=== PATIENT | female | born 1985 | race Caucasian/White ===

== ENCOUNTER 2020-07-17 00:58 | Outpatient (CLI) | payer BC, SELFPAY ==
[2020-07-17 18:46] LABS: SARS-CoV-2 RNA PCR Negative
== END 2020-07-17 00:59 | disposition home or self-care (01) ==
LOC: ANHCOVIDDT 00:59
PROVIDERS: Visit Provider Obstetrics & Gynecology
DX: Z01.812 Encounter for preprocedural laboratory examination (principal); Z20.822 Contact with and (suspected) exposure to COVID-19
CPT/HCPCS: C9803; U0003; U0005

== ENCOUNTER 2020-07-20 01:16 | Day surgery (SDC) | payer BC, SELFPAY ==
[2020-07-08 16:41] VITALS: BMI 21.9
--- NOTE | 2020-07-19 11:56 | P.PNAN_ITS ---
Anes - Initial Pre Proc Eval Procedure: Operation Date: 07/20/20 12:00 Proposed Procedures p Hysteroscopy, Dilation and Curettage, Polypectomy - Victoriano Busby MD Date/Time: 07/19/20 11:56 Surgeon: Victoriano Busby MD Pre Op Diagnosis: Post Coital bleeding, uterine polyp Patient Data Age: 35 Gender: F Height: 1.57 m Weight: 54.43 kg Allergies Allergy/AdvReac Type Severity Reaction Status Date / Time No Known Allergies Allergy Unknown Verified 07/20/20 10:21 Home Medications Medication Instructions Recorded Confirmed Type A To Z Multivitamin 1 cap PO DAILY 07/08/20 07/08/20 History acetaminophen 500 mg PO Q6H PRN 07/20/20 07/20/20 History ibuprofen 600 mg PO Q6H PRN 07/20/20 07/20/20 History pantoprazole [Protonix] 40 mg PO QAM PRN 07/20/20 07/20/20 History Patient hx anesthesia problems: none Family hx anesthesia problems: none [facility] Social History Social History Smoking status: Never smoker Living arrangements: with family Spiritual care concerns: No Anes - Eval Final PreProcedure Day of Procedure 07/19/20 11:56 Patient weight: normal Heart: regular rate and rhythm Lungs: clear to auscultation and normal air movement Airway: Mallampati scale class II Neurological: alert and oriented Last oral intake: >/= 8 hours ASA classification: I Emergent: no Anesthetic plan: proceed Anesthesia type and monitoring: general GIVS and LMA Informed Consent: The patient's anesthetic plan and its attendant risks and benefits were discussed with the patient/family/POA. Questions were solicited and answers provided to the satisfaction of the patient/family/POA.
--- NOTE | 2020-07-19 23:14 | P.HP_ITS ---
H&P: HPI History of Present Illness Date/Time: 07/19/20 23:14 Chief Complaint: Irregular bleeding Narrative: 35 y/o with intermittent vaginal bleeding. Office hysteroscopy suggested an endometrial polyp. I have offered surgical management. Review of Systems Review of Systems: All systems reviewed & are unremarkable except as noted in HPI and below PMFSH Social History Social History Smoking status: Never smoker Spiritual care concerns: No Comments x 3, largest infant 8#2oz. Meds Home Medications and Allergies Home Medications Medication Instructions Recorded Confirmed Type A To Z Multivitamin 1 cap PO DAILY 07/08/20 07/08/20 History Allergies Allergy/AdvReac Type Severity Reaction Status Date / Time No Known Allergies Allergy Unknown Verified 07/08/20 16:42 Exam Const: Orientation/consciousness: patient oriented x3 Other: Well- developed, well-nourished female in no acute distress. Neck: Thyroid: thyroid normal Lymphatic: no lymphadenopathy noted (in neck, axilla or inguinal nodes) Resp: Effort & Inspection: normal respiratory effort Auscultation: clear to auscultation bilaterally Cardio: Rate: regular rate Rhythm: regular rhythm Heart sounds: S1 normal heart sound present and S2 normal heart sound present GI: Other: ABD: Soft, nontender, nondistended. No guarding or rebound tenderness. No hepatosplenomegaly. : General: Yes no CVA tenderness Other: External genitalia: normal female hair distribution, without lesion. Urethral meatus: no lesion, non prolapsed. Bladder: no mass, nontender Vagina: well-estrogenized, without lesion or discharge. No cystocele or rectocele. Cervix: no lesion or discharge. Uterus: small, anteverted, freely mobile, nontender Adnexa: no mass or tenderness. Anus/perineum: no lesions, nontender Back/Spine/Pelvis: Back: no CVA tenderness Skin: General skin exam: normal color and no rashes or lesions noted Neuro: General: patient oriented x3 Extrem: Other: Extremities: nontender with no edema Psych: Mental Status: mental status grossly normal Affect: normal affect Assessment and Plan Assessment and plan (1) Abnormal vaginal bleeding: Code(s): N93.9 - Abnormal uterine and vaginal bleeding, unspecified Status: Acute Assessment and Plan: Because of the longstanding nature of her bleeding, and because there was a suggestion on an endometrial polyp on office hysteroscopy, I have offered dilation and sharp curettage, with possible endometrial polypectomy. She understands risks of surgery to include risks of anesthesia, risks of pain, infection, bleeding, blood products, thromboembolic phenomena and damage to adjacent structures such as bowel, bladder, ureters, blood vessels and nerves. She understands all these risks and elects to proceed with surgery.
[2020-07-20 09:50] VITALS: BP 123/85; PULSE 77; RESP 16; TEMP 37.2; O2SAT 100
[2020-07-20] MEDS: ACETAMINOPHEN 500 MG TABLET 1000 MG PO (10:11)
[2020-07-20] MEDS: LACTATED RINGERS 1,000 ML 30 ML IV CONT ×2 (10:15→12:33)
--- NOTE | 2020-07-20 11:55 | WPDHPUPDATE1 ---
History and Physical Update Update Date/Time: 07/20/20 11:55 History and Physical has been reviewed, including an updated exam of the patient. There are NO changes in the patient's condition. Risks, benefits, and alternatives have been discussed and questions answered. Patient agrees to proceed with procedure.
[2020-07-20] MEDS: LIDOCAINE HCL 1% LOCAL INJ 20 ML VIAL 10 ML INFILTRATE (12:17)
[2020-07-20] MEDS: KETOROLAC 30 MG/ML VIAL (*BKC) IV PUSH (12:25)
--- NOTE | 2020-07-20 12:31 | PM.PROC ---
Procedure Note - Detailed Date of procedure: 07/20/20 Pre-op diagnosis: Post Coital bleeding, uterine polyp Metrorrhagia Endometrial polyp Post-op diagnosis: same Procedure performed: Hysteroscopy Dilation and sharp curettage Endometrial polypectomy Description of procedure: The patient was taken to the operating room where she was prepared and draped in the usual sterile fashion in the dorsal lithotomy position. The bladder was drained with a red rubber catheter. A sterile speculum was placed into the vagina. The anterior lip of the cervix was grasped with single-tooth tenaculum. Ten mL of 1% lidocaine was administered in a paracervical block. The cervix was then gently dilated using Hegar dilators until an 8 mm dilator could be passed. Hysteroscopy was performed using sterile saline as a distention medium. Findings were as noted above. A polyp forceps was used to grasp the apparent endometrial polyp and remove it. Sharp curettage was then performed, and endometrial curettings were collected on a Telfa pad and passed off to be sent to pathology. A second look was taken with the hysteroscope to ensure that the polyp had been completely excised. Hemostasis was excellent. Sponge, lap, needle and instrument counts were correct. The patient was awakened and taken to the recovery room in stable condition. I was present and scrubbed through the entire procedure. Implants: None Anesthesia: MAC and local (1% lidocaine paracervical block) Surgeon: Victoriano Busby MD Estimated blood loss (mL): 10 Drains: No Packing: No Pathology: yes (endometrial curettings, endometrial polyp) Complications: None Condition: stable Disposition: PACU Findings: Small endometrial polyp at the right fundus. Both tubal ostia seen.
[2020-07-20 12:35] VITALS: BP 99/53; PULSE 80; RESP 16; O2SAT 100
[2020-07-20 13:00] VITALS: BP 89/61; PULSE 60; RESP 20
[2020-07-20 13:30] VITALS: BP 87/63; PULSE 55; RESP 20
== END 2020-07-20 13:45 | disposition home or self-care (01) ==
PROVIDERS: Visit Provider Obstetrics & Gynecology
PROC: 0U5B8ZZ Destruction of Endometrium, Via Natural or Artificial Opening Endoscopic (ICD-10-PCS; CPT 58563; principal; 2020-07-20 12:00)
DX: N93.0 Postcoital and contact bleeding (principal); N84.0 Polyp of corpus uteri; N93.9 Abnormal uterine and vaginal bleeding, unspecified
CPT/HCPCS: 58558; 88305; A9270; J1885; J2250; J2370; J2405; J3010; J7030; J7120

== ENCOUNTER 2021-02-14 02:07 | Day surgery (SDC) | payer BC, SELFPAY ==
[2021-02-09 13:37] VITALS: BMI 21.9
[2021-02-14 11:33] VITALS: BP 107/62; PULSE 77; RESP 18; TEMP 36.7; O2SAT 100; BMI 21.2
--- NOTE | 2021-02-14 11:37 | WPDANESEPPF ---
Anes - Initial Pre Proc Eval Procedure: Operation Date: 02/14/21 12:15 Proposed Procedures p Esophagogastroduodenoscopy - Alfonso Amaya MD Date/Time: 02/14/21 11:37 Surgeon: Alfonso Amaya MD Pre Op Diagnosis: food impaction Patient Data Age: 35 Gender: F Height: 1.57 m Weight: 52.8 kg Last Vital Signs Temp 36.7 C 02/14/21 11:33 Pulse 77 02/14/21 11:33 Resp 18 02/14/21 11:33 BP 107/62 02/14/21 11:33 Pulse Ox 100 02/14/21 11:33 Allergies Allergy/AdvReac Type Severity Reaction Status Date / Time No Known Allergies Allergy Unknown Verified 02/14/21 11:28 Home Medications Medication Instructions Recorded Confirmed Type A To Z Multivitamin 1 cap PO DAILY 07/08/20 02/09/21 History acetaminophen 500 mg PO Q6H PRN 07/20/20 02/09/21 History ibuprofen 600 mg PO Q6H PRN 07/20/20 02/09/21 History pantoprazole [Protonix] 40 mg PO QAM PRN 07/20/20 02/09/21 History Patient hx anesthesia problems: none Family hx anesthesia problems: none PMFSH Social History Social History Smoking status: Never smoker Alcohol intake: current Drinks per week: 5 Living arrangements: with family Spiritual care concerns: No Anes - Eval Final PreProcedure Day of Procedure 02/14/21 11:37 Patient weight: normal Lungs: clear to auscultation Airway: Mallampati scale class II Neurological: alert and oriented Last oral intake: >/= 8 hours ASA classification: I Emergent: no Anesthetic plan: proceed Anesthesia type and monitoring: general GIVS and standard monitoring Informed Consent: The patient's anesthetic plan and its attendant risks and benefits were discussed with the patient/family/POA. Questions were solicited and answers provided to the satisfaction of the patient/family/POA.
[2021-02-14] MEDS: LACTATED RINGERS 1,000 ML 150 ML IV CONT (11:41)
--- NOTE | 2021-02-14 12:07 | PM.HPGS ---
History of Present Illness History of Present Illness Consent: Risks, benefits, and alternatives have been discussed and questions answered. Patient agrees to proceed with procedure. Chief complaint: food impaction Narrative: Iris Walker is a 35 year old female with dysphagia to solids and also one time had food bolus but treated medically, never had egd. Using protonix but only occasionally Review of Systems Constitutional: Constitutional: Denies headache(s) and Denies weakness Eyes: Eyes: Denies blurry vision ENT: Reports Normal hearing present, Denies headache(s) and Denies neck pain Cardiovascular: Cardiovascular: Denies chest pain and Denies dyspnea Respiratory: Respiratory: Denies dyspnea Gastrointestinal: Gastrointestinal: Reports no additional gastrointestinal complaints Genitourinary: Genitourinary: Denies dysuria Musculoskeletal: Musculoskeletal: Denies neck pain Integumentary/Breasts: Skin/Breast: Denies dry skin Neurologic: Reports Normal hearing present, Denies headache(s) and Denies weakness Psychiatric: Psychiatric: Denies anxiety Endocrine: Endocrine: Denies change in body appearance Hematologic/Lymphatic: Hematologic/Lymphatic: Denies easy bleeding Allergic/Immunologic: Allergic/Immunologic: Denies urticaria PMFSH Past Medical History Medical History (Updated 02/14/21 @ 12:08 by Alfonso Amaya MD) Dysphagia Social History Social History Smoking status: Never smoker Alcohol intake: current Drinks per week: 5 Living arrangements: with family Spiritual care concerns: No Meds Home Medications and Allergies Home Medications Medication Instructions Recorded Confirmed Type A To Z Multivitamin 1 cap PO DAILY 07/08/20 02/09/21 History acetaminophen 500 mg PO Q6H PRN 07/20/20 02/09/21 History ibuprofen 600 mg PO Q6H PRN 07/20/20 02/09/21 History pantoprazole [Protonix] 40 mg PO QAM PRN 07/20/20 02/09/21 History Allergies Allergy/AdvReac Type Severity Reaction Status Date / Time No Known Allergies Allergy Unknown Verified 02/14/21 11:28 Vital Signs Vital Signs - 24 hr 02/14/21 11:33 Temperature 98.1 F Pulse Rate 77 Respiratory Rate 18 Blood Pressure 107/62 Pulse Oximetry 100 Exam Const: General: comfortable and no acute distress HENMT: General nose exam: Normal nares present Eyes: General: appearance normal, both eyes and all related structures Neck: Neck: no JVD Resp: Auscultation: clear to auscultation bilaterally Cardio: Rate: regular rate Rhythm: regular rhythm GI: Inspection: non-distended GI Palp: Yes Soft to palpation Skin: General skin exam: normal color Neuro: General: gait normal Speech: normal speech Extrem: General: normal to inspection Psych: Mental Status: mental status grossly normal Assessment and Plan Assessment and plan (1) Dysphagia: Code(s): R13.10 - Dysphagia, unspecified Status: Acute Assessment and Plan: egd to assess if stricture, also consider random bx ? EoE
[2021-02-14 12:27] VITALS: BP 83/60; PULSE 78; RESP 18; O2SAT 100
[2021-02-14 12:37] VITALS: BP 83/56; PULSE 71; RESP 18; O2SAT 100
== END 2021-02-14 12:55 | disposition home or self-care (01) ==
PROVIDERS: Visit Provider Internal Medicine Gastroenterology
PROC: 0DJ08ZZ Inspection of Upper Intestinal Tract, Via Natural or Artificial Opening Endoscopic (ICD-10-PCS; CPT 43235; principal; 2021-02-14 12:15)
DX: R13.10 Dysphagia, unspecified (principal); K20.90 Esophagitis, unspecified without bleeding
CPT/HCPCS: 43239; 88305; J2001; J2704; J7120

== ENCOUNTER 2023-08-07 13:18 | Outpatient (CLI) | payer OTHER, SELFPAY ==
--- NOTE | ~2023-08-07 | MM_ITS ---
EXAMINATION: MM screening mónica BI w terence HISTORY: Screening mammogram. Baseline examination. TECHNIQUE: Craniocaudal and mediolateral oblique 3-D tomosynthesis images were obtained and synthetic 2-D images were generated. CAD analysis was submitted and interpreted. COMPARISON: No prior mammogram is available for comparison at this institution. BREAST PARENCHYMAL COMPOSITION: The breasts are heterogeneously dense, which may obscure small masses . FINDINGS: There is no evidence of suspicious mass, calcification, or architectural distortion to sugg est malignancy in either breast. IMPRESSION: 1. No mammographic evidence of malignancy. 2. Recommend routine screening mammography in one year. BI-RADS Category 1: Negative Reviewed, dictated and finalized at location A. [facility] [employer] [employer]
== END 2023-08-07 13:19 | disposition home or self-care (01) ==
LOC: CHSIMG 13:20
PROVIDERS: PCP Obstetrics & Gynecology; Visit Provider Obstetrics & Gynecology
DX: Z12.31 Encounter for screening mammogram for malignant neoplasm of breast (principal)
CPT/HCPCS: 77063; 77067

== ENCOUNTER 2024-08-12 11:47 | Outpatient (CLI) | payer OTHER, SELFPAY ==
--- NOTE | ~2024-08-12 | MM_ITS ---
EXAMINATION: MM screening mónica BI w terence HISTORY: Screening TECHNIQUE: Craniocaudal and mediolateral oblique 3-D tomosynthesis images were obtained and synthetic 2-D images were generated. CAD analysis was submitted and interpreted. COMPARISON: 08/07/2023 BREAST PARENCHYMAL COMPOSITION: Dense: The breasts are heterogeneously dense, which may obscure small masses FINDINGS: There is no evidence of suspicious mass, calcification, or architectural distortion to sugg est malignancy in either breast. There has been no suspicious interval change. IMPRESSION: 1. No mammographic evidence of malignancy. 2. Recommend routine screening mammography in one year. BI-RADS Category 1: Negative Reviewed, dictated and finalized at location B. [facility]
== END 2024-08-12 11:48 | disposition home or self-care (01) ==
LOC: CHSIMG 11:49
PROVIDERS: PCP Obstetrics & Gynecology; Visit Provider Obstetrics & Gynecology
DX: Z12.31 Encounter for screening mammogram for malignant neoplasm of breast (principal)
CPT/HCPCS: 77063; 77067